=== PATIENT | male | born 1980 | race Two or more races ===

== ENCOUNTER 2022-12-09 08:44 | Outpatient (CLI) | payer OTHER | END 2022-12-09 08:50 | disposition home or self-care (01) | LOC: SONOGRAMA 08:44 | PROVIDERS: ATTEND Surgery | DX: I86.1 Scrotal varices (principal) ==

== ENCOUNTER 2023-01-26 09:26 | Outpatient (CLI) | payer OTHER | END 2023-01-26 09:28 | disposition home or self-care (01) | LOC: LAB 09:26 | PROVIDERS: ATTEND Surgery | DX: I86.1 Scrotal varices (principal) ==

== ENCOUNTER 2023-11-03 09:18 | Outpatient (CLI) | payer OTHER | END 2023-11-03 09:27 | disposition home or self-care (01) | LOC: RAD 09:18 | PROVIDERS: ATTEND Colon & Rectal Surgery | DX: K60.0 Acute anal fissure (principal); K64.2 Third degree hemorrhoids ==